=== PATIENT | female | born 1940 | race Caucasian/White ===

== ENCOUNTER 2017-06-09 16:11 | Inpatient (IN) | payer OTHER ==
[~2017-06-09] VITALS: Ht 160 cm; Wt 91.1 kg
[2017-06-09 17:29] LABS: BASOPHIL (%) 0.7 % (0-1); BASOPHIL COUNT 0.1 K/uL (0-0.1); EOSINOPHIL (%) 2.4 % (0-5); EOSINOPHIL COUNT 0.2 K/uL (0-0.3); HEMOGLOBIN 12.8 G/DL (11.9-15.5); IMMATURE GRANULOCYTE (%) 0.3 % (0.0-0.7); LYMPHOCYTE (%) 12.5 % (15-42); LYMPHOCYTE COUNT 1.3 K/uL (1.0-2.8); MCH 28.5 PG (29.0-34.0); MCHC 32.8 G/DL (30.0-36.0); MCV 86.9 FL (83-99); MONOCYTE (%) 8.7 % (3-12); MONOCYTE COUNT 0.9 K/uL (0-0.8); NEUTROPHIL (%) 75.4 % (45-76); NEUTROPHIL COUNT 7.6 K/uL (1.8-6.4); PLATELET COUNT 287 K/uL (156-360); RBC DIS.WIDTH-CV 12.4 % (11.8-14.6); RBC DIS.WIDTH-SD 39.7 % (39-53); RED BLOOD COUNT 4.49 M/uL (3.80-5.20)
[2017-06-09 17:36] LABS: INTER. NORMALIZED RATIO 1.1
[2017-06-09 17:43] LABS: ALBUMIN 4.2 g/dL (3.2-4.8); CHLORIDE 107 mEq/L (99-109); SODIUM 138 mEq/L (136-147)
[2017-06-09 17:45] LABS: GLUCOSE 159 mg/dL (70-99); TOTAL PROTEIN 7.9 g/dL (6.4-8.3)
[2017-06-09 17:47] LABS: TOTAL BILIRUBIN 0.5 mg/dL (0.0-1.0)
[2017-06-09 17:49] LABS: ALKALINE PHOSPHATASE 60 IU/L (3-129); CREATININE 2.8 mg/dL (0.6-1.3)
[2017-06-09 17:50] LABS: AST (GOT) 14 IU/L (2-34); UREA NITROGEN (BUN) 45 mg/dL (9-23)
[2017-06-09 17:51] LABS: TROP-I INTERPRETATION NEGATIVE; TROPONIN-I 0.13 ng/mL (0.0-0.30)
[2017-06-09 17:52] LABS: ALT (GPT) 10 IU/L (3-49)
[2017-06-09 17:54] LABS: GFR ESTIMATE (CALCULATED) 18 mL/min/
[2017-06-09 19:40] LABS: APPEARANCE SL.HAZY ((CLEAR)); BILIRUBIN NEGATIVE; BLOOD SMALL; COLOR YELLOW ((YELLOW)); GLUCOSE (STRIP) 50; KETONES NEGATIVE; LEUKOCYTES NEGATIVE; NITRITE NEGATIVE; PROTEIN (STRIP) >=500; SPECIFIC GRAVITY 1.016 (1.000-1.030); UROBILINOGEN 0.2 MG/DL (0.2-1.0)
[2017-06-09 19:46] LABS: BACTERIA RARE /HPF; EPITHELIAL CELLS RARE /HPF; HYALINE CASTS 0-5 /LPF; MUCUS TRACE /LPF; RED BLOOD CELLS 0-5 /HPF (0-5)
[2017-06-09] MEDS ORDERED: LOPRESSOR25 MG PO (20:35)
[2017-06-09] MEDS ORDERED: LEVOTHYROXINE125 MCG PO (20:36)
[2017-06-09] MEDS ORDERED: VERAPAMIL HCL240 MG PO (20:36)
[2017-06-09] MEDS ORDERED: HYDROCHLOROTHIA25 MG PO (20:37)
[2017-06-09] MEDS ORDERED: ROCALTROL0.5 MCG PO (20:38)
[2017-06-09 20:49] LABS: TROP-I INTERPRETATION NEGATIVE; TROPONIN-I 0.12 ng/mL (0.0-0.30)
[2017-06-09 21:38] LABS: ERTH.SED.RATE 53 MM/HR (0-30)
[2017-06-10] VITALS (8 sets, daily range): BP systolic 146–200; BP diastolic 72–98
[2017-06-10 05:11] LABS: APPEARANCE SL.HAZY ((CLEAR)); BILIRUBIN NEGATIVE; BLOOD NEGATIVE; COLOR YELLOW ((YELLOW)); GLUCOSE (STRIP) 50; KETONES NEGATIVE; LEUKOCYTES TRACE; NITRITE NEGATIVE; PROTEIN (STRIP) >=500; SPECIFIC GRAVITY 1.013 (1.000-1.030); UROBILINOGEN 0.2 MG/DL (0.2-1.0)
[2017-06-10 05:24] LABS: BACTERIA RARE /HPF; EPITHELIAL CELLS RARE /HPF; MUCUS TRACE /LPF; RED BLOOD CELLS 0-5 /HPF (0-5); UCUL ADDED? YES; WHITE BLOOD CELLS 15-20 /HPF (0-5)
[2017-06-10 06:27] LABS: HEMATOCRIT 33.4 % (36.0-46.0); HEMOGLOBIN 10.9 G/DL (11.9-15.5); MCHC 32.6 G/DL (30.0-36.0); MCV 85.9 FL (83-99); PLATELET COUNT 256 K/uL (156-360); RBC DIS.WIDTH-CV 12.4 % (11.8-14.6); RBC DIS.WIDTH-SD 39.1 % (39-53); RED BLOOD COUNT 3.89 M/uL (3.80-5.20); WHITE BLOOD COUNT 8.3 K/uL (4.1-10.2)
[2017-06-10 06:51] LABS: ALBUMIN 3.7 G/DL (3.2-4.8); CHLORIDE 107 MEQ/L (99-109); CREATININE 2.9 MG/DL (0.6-1.3); GFR ESTIMATE (CALCULATED) 17 mL/min/; GLUCOSE 123 mg/dL (70-99); PHOSPHORUS 3.8 mg/dL (2.5-4.9); POTASSIUM 3.7 MEQ/L (3.7-5.4); SODIUM 140 MEQ/L (136-147); UREA NITROGEN (BUN) 44 mg/dL (9-23)
[2017-06-10 20:17] LABS: CREATINE KINASE 62 IU/L (1-294); TOTAL CK 62 IU/L (1-294)
[2017-06-10 20:42] LABS: CK-MB 2.9 ng/mL (0.0-4.9)
[2017-06-10 20:48] LABS: CKMB RELATIVE INDEX 4.7 (0.0-3.9)
[2017-06-11 03:31] VITALS: BP 172/78
[2017-06-11 07:13] LABS: CHLORIDE 104 MEQ/L (99-109); GFR ESTIMATE (CALCULATED) 16 mL/min/; GLUCOSE 137 mg/dL (70-99); POTASSIUM 3.8 MEQ/L (3.7-5.4); SODIUM 139 MEQ/L (136-147); UREA NITROGEN (BUN) 44 mg/dL (9-23)
[2017-06-11 07:45] VITALS: BP 120/70
[2017-06-11 11:11] VITALS: BP 210/89
[2017-06-11 15:57] VITALS: BP 174/79
[2017-06-11 20:00] VITALS: BP 189/90
[2017-06-11 22:45] VITALS: BP 164/72
[2017-06-12 03:31] VITALS: BP 179/74
[2017-06-12 04:00] VITALS: BP 145/78
[2017-06-12 06:06] LABS: HEMOGLOBIN 10.5 G/DL (11.9-15.5); MCHC 32.8 G/DL (30.0-36.0); MCV 88.4 FL (83-99); PLATELET COUNT 255 K/uL (156-360); RBC DIS.WIDTH-CV 12.9 % (11.8-14.6); RBC DIS.WIDTH-SD 41.8 % (39-53); RED BLOOD COUNT 3.62 M/uL (3.80-5.20); WHITE BLOOD COUNT 7.4 K/uL (4.1-10.2)
[2017-06-12 06:34] LABS: CHLORIDE 105 MEQ/L (99-109); CREATININE 3.4 MG/DL (0.6-1.3); GFR ESTIMATE (CALCULATED) 14 mL/min/; GLUCOSE 111 mg/dL (70-99); POTASSIUM 3.9 MEQ/L (3.7-5.4); SODIUM 137 MEQ/L (136-147); UREA NITROGEN (BUN) 56 mg/dL (9-23)
[2017-06-12 07:11] VITALS: BP 168/64
[2017-06-12 11:17] VITALS: BP 176/77
[2017-06-12 15:10] VITALS: BP 180/74
[2017-06-12 15:28] LABS: C4 COMPLEMENT 32 MG/DL (10-40); CHLORIDE 104 MEQ/L (99-109); CREATININE 3.2 MG/DL (0.6-1.3); GFR ESTIMATE (CALCULATED) 15 mL/min/; GLUCOSE 128 mg/dL (70-99); POTASSIUM 4.1 MEQ/L (3.7-5.4); SODIUM 138 MEQ/L (136-147); UREA NITROGEN (BUN) 54 mg/dL (9-23)
[2017-06-12 20:21] LABS: UR CREATININE CONCENTRATION 138.9 MG/DL
[2017-06-12 20:54] VITALS: BP 178/80
[2017-06-12 21:58] LABS: URINE TOTAL PROTEIN 199 MG/DL (0-10)
[2017-06-13] VITALS (11 sets, daily range): BP systolic 163–193; BP diastolic 72–84
[2017-06-13 06:11] LABS: HEMATOCRIT 32.6 % (36.0-46.0); HEMOGLOBIN 10.6 G/DL (11.9-15.5); MCH 28.1 PG (29.0-34.0); MCHC 32.5 G/DL (30.0-36.0); MCV 86.5 FL (83-99); PLATELET COUNT 289 K/uL (156-360); RBC DIS.WIDTH-CV 12.7 % (11.8-14.6); RBC DIS.WIDTH-SD 40.2 % (39-53); RED BLOOD COUNT 3.77 M/uL (3.80-5.20); WHITE BLOOD COUNT 7.2 K/uL (4.1-10.2)
[2017-06-13 06:32] LABS: CHLORIDE 105 MEQ/L (99-109); CREATININE 3.5 MG/DL (0.6-1.3); GFR ESTIMATE (CALCULATED) 14 mL/min/; GLUCOSE 105 mg/dL (70-99); SODIUM 138 MEQ/L (136-147); UREA NITROGEN (BUN) 57 mg/dL (9-23)
[2017-06-13 10:48] LABS: HEPATITIS B SURFACE ANTIBODY Nonreactive; HEPATITIS B SURFACE ANTIGEN Nonreactive; HEPATITIS C ANTIBODY Nonreactive
[2017-06-14] VITALS: BP 171/86
[2017-06-14 04:30] VITALS: BP 164/63
[2017-06-14 06:09] LABS: HEMATOCRIT 31.5 % (36.0-46.0); HEMOGLOBIN 10.3 G/DL (11.9-15.5); MCH 28.9 PG (29.0-34.0); MCHC 32.7 G/DL (30.0-36.0); MCV 88.5 FL (83-99); PLATELET COUNT 286 K/uL (156-360); RBC DIS.WIDTH-CV 12.9 % (11.8-14.6); RED BLOOD COUNT 3.56 M/uL (3.80-5.20); WHITE BLOOD COUNT 7.1 K/uL (4.1-10.2)
[2017-06-14 06:43] LABS: ALBUMIN 3.4 G/DL (3.2-4.8); CHLORIDE 108 MEQ/L (99-109); CREATININE 3.4 MG/DL (0.6-1.3); GFR ESTIMATE (CALCULATED) 14 mL/min/; GLUCOSE 94 mg/dL (70-99); PHOSPHORUS 4.4 mg/dL (2.5-4.9); POTASSIUM 4.3 MEQ/L (3.7-5.4); SODIUM 140 MEQ/L (136-147); UREA NITROGEN (BUN) 56 mg/dL (9-23)
[2017-06-14 08:35] VITALS: BP 150/72
[2017-06-14 11:30] VITALS: BP 168/72
[2017-06-14] MEDS ORDERED: AMLODIPINE BESY10 MG PO (11:35)
[2017-06-14] MEDS ORDERED: APRESOLINE50 MG PO (11:56)
[2017-06-14 21:07] LABS: MYELOPEROXIDASE ANTIBODY (MPO) <1.0 AI (<1.0); PROTEINASE-3 ANTIBODY+ <1.0 AI (<1.0)
[2017-06-17 02:08] LABS: Cryoglobulin, Qualitative None Detected (None Detected)
== END 2017-06-14 14:26 | disposition home or self-care (01) | DRG 683 ==
LOC: EME 16:11 → 5EAST 20:35 → EDOF 20:35 → ENRESERV 20:36 → 5EAST 22:20
PROVIDERS: Emergency Medicine; Hospitalist; Internal Medicine
PROC: 0TB03ZX Excision of Right Kidney, Percutaneous Approach, Diagnostic (ICD-10-PCS; principal; 2017-06-13)
DX: N17.9 Acute kidney failure, unspecified (principal); I16.1 Hypertensive emergency; S00.03XA Contusion of scalp, initial encounter; S02.2XXA Fracture of nasal bones, initial encounter for closed fracture; W10.1XXA Fall (on)(from) sidewalk curb, initial encounter; Y92.480 Sidewalk as the place of occurrence of the external cause; I12.9 Hypertensive chronic kidney disease with stage 1 through stage 4 chronic kidney disease, or unspecified chronic kidney disease; E11.21 Type 2 diabetes mellitus with diabetic nephropathy; E11.22 Type 2 diabetes mellitus with diabetic chronic kidney disease; N18.4 Chronic kidney disease, stage 4 (severe); D64.9 Anemia, unspecified; E03.9 Hypothyroidism, unspecified; E78.5 Hyperlipidemia, unspecified; N25.81 Secondary hyperparathyroidism of renal origin; K46.9 Unspecified abdominal hernia without obstruction or gangrene; R74.8 Abnormal levels of other serum enzymes; Z88.2 Allergy status to sulfonamides; Z88.0 Allergy status to penicillin
CPT/HCPCS: 70450; 70486; 71045; 72125; 73564; 76770; 77012; 80048; 80048 91; 80053; 80069; 81003; 82330; 82550; 82553; 82570; 82595 90; 83735; 83930; 83935; 84156; 84300; 84484; 85025; 85027; 85610; 85652; 86021 90; 86038; 86160; 86235; 86334; 86335; 86706; 86803; 87086; 87340; 88305; 88313 90; 88346 90; 88348 90; 93005; 93975; 99281; 99285; J0360; J1644; J7120